=== PATIENT | male | born 1960 | race African-American/Black ===

== ENCOUNTER 2019-09-02 11:18 | Inpatient (IN) | payer SELFPAY ==
[~2019-09-02] VITALS: Ht 165.1 cm; Wt 70.6 kg
[2019-09-02 11:59] LABS: BASO # 0.1 x10^3/uL (0.0-0.2); BASO % 1 % (0-3); EOS % 0 % (0-3); HEMATOCRIT 42.1 % (39.0-53.0); HEMOGLOBIN 13.7 g/dL (13.0-17.5); LYMPH # 1.9 x10^3/uL (1.0-4.8); LYMPH % 16 % (24-48); MEAN CORPUSCULAR HEMOGLOBIN 31 pg (25-35); MEAN CORPUSCULAR HGB CONC 33 g/dL (31-37); MEAN CORPUSCULAR VOLUME 95 fL (79-100); MONO # 0.7 x10^3/uL (0.0-1.1); MONO % 6 % (0-9); NEUT # 9.3 x10^3uL (1.8-7.7); NEUT % 78 % (31-73); PLATELET COUNT 303 x10^3/uL (140-400); RED BLOOD COUNT 4.41 x10^6/uL (4.30-5.70); WHITE BLOOD COUNT 11.9 x10^3/uL (4.0-11.0)
--- NOTE | 2019-09-02 11:59 | RAD ---
EXAM: CHEST 1 VIEW History: Shortness of breath COMPARISON: None available. TECHNIQUE: Single portable radiograph of the chest Findings/ impression: The cardiac silhouette is unremarkable. Prominent appearing bilateral perihilar interstitial lung markings probably congestive changes or interstitial infiltrates. There are patchy airspace opacities identified in the bilateral lungs likely atelectasis or infiltrates, neoplasm is not completely excluded. Follow-up CT chest can be considered. Electronically signed by: Leon Swanson MD (09/02/2019 11:56 AM) [id number]
[2019-09-02 12:04] LABS: CALCIUM 8.8 mg/dL (8.5-10.1); CREATININE 1.3 mg/dL (0.7-1.3); GFR 68.8; POTASSIUM 4.3 mmol/L (3.5-5.1)
[2019-09-02 12:17] LABS: ALBUMIN 2.8 g/dL (3.4-5.0); ALBUMIN/GLOBULIN RATIO 0.7 (1.0-1.7); TOTAL BILIRUBIN 0.4 mg/dL (0.2-1.0); TOTAL PROTEIN 6.9 g/dL (6.4-8.2)
--- NOTE | 2019-09-02 12:20 | PHYS DOC ---
Past History Past Medical History: No Pertinent History Past Surgical History: Other Additional Past Surgical Histo: hernia surgery as a child Alcohol Use: None General Adult EDM: Chief Complaint: OTHER COMPLAINTS HPI: HPI: 59-year-old male presents with decreased exercise tolerance. He was referred here by his primary care physician. He was concerned the patient may have CHF. The patient tells me he does not have any significant medical history. He just does not feel like he can do his normal activities without becoming very tired. He does not really feel short of breath, but does admit to breathing harder with exertion. He denies muscle cramps. Denies fever chills. He has been eating and drinking normally. He takes no daily medications. Review of Systems: Review of Systems: Constitutional: fatigue. Denies fever or chills Eyes: Denies change in visual acuity HENT: Denies nasal congestion or sore throat Respiratory: shortness of breath without cough Cardiovascular: Denies chest pain or edema GI: Denies abdominal pain, nausea, vomiting, bloody stools or diarrhea : Denies dysuria Musculoskeletal: Denies back pain or joint pain Integument: Denies rash Neurologic: Denies headache, focal weakness or sensory changes Endocrine: Denies polyuria or polydipsia Lymphatic: Denies swollen glands Psychiatric: Denies depression or anxiety Heart Score: Risk Factors: Risk Factors: DM, Current or recent (<one month) smoker, HTN, HLP, family history of CAD, obesity. Risk Scores: Score 0 - 3: 2.5% MACE over next 6 weeks - Discharge Home Score 4 - 6: 20.3% MACE over next 6 weeks - Admit for Clinical Observation Score 7 - 10: 72.7% MACE over next 6 weeks - Early Invasive Strategies Allergies: Allergies: Allergies Coded Allergies Type Severity Reaction Last Updated Verified No Known Drug Allergies 09/02/19 No Physical Exam: PE: Constitutional: Well developed, well nourished, no acute distress, non-toxic appearance. [] HENT: Normocephalic, atraumatic, bilateral external ears normal, oropharynx moist, no oral exudates, nose normal. [] Eyes: PERRLA, EOMI, conjunctiva normal, no discharge. [] Neck: Normal range of motion, no tenderness, supple, no stridor. [] Cardiovascular:Heart rate regular rhythm, no murmur [] Lungs & Thorax: Bilateral breath sounds clear to auscultation [] Abdomen: Bowel sounds normal, soft, no tenderness, no masses, no pulsatile masses. [] Skin: Warm, dry, no erythema, no rash. [] Back: No tenderness, no CVA tenderness. [] Extremities: No tenderness, no cyanosis, no clubbing, ROM intact, no edema. [] Neurologic: Alert and oriented X 3, normal motor function, normal sensory function, no focal deficits noted. [] Psychologic: Affect normal, judgement normal, mood normal. [] Current Patient Data: Labs: Laboratory Tests Test 09/02/19 11:44 White Blood Count 11.9 x10^3/uL (4.0-11.0) H Red Blood Count 4.41 x10^6/uL (4.30-5.70) Hemoglobin 13.7 g/dL (13.0-17.5) Hematocrit 42.1 % (39.0-53.0) Mean Corpuscular Volume 95 fL (79-100) Mean Corpuscular Hemoglobin 31 pg (25-35) Mean Corpuscular Hemoglobin Concent 33 g/dL (31-37) Red Cell Distribution Width 14.0 % (11.5-14.5) Platelet Count 303 x10^3/uL (140-400) Neutrophils (%) (Auto) 78 % (31-73) H Lymphocytes (%) (Auto) 16 % (24-48) L Monocytes (%) (Auto) 6 % (0-9) Eosinophils (%) (Auto) 0 % (0-3) Basophils (%) (Auto) 1 % (0-3) Neutrophils # (Auto) 9.3 x10^3uL (1.8-7.7) H Lymphocytes # (Auto) 1.9 x10^3/uL (1.0-4.8) Monocytes # (Auto) 0.7 x10^3/uL (0.0-1.1) Eosinophils # (Auto) 0.0 x10^3/uL (0.0-0.7) Basophils # (Auto) 0.1 x10^3/uL (0.0-0.2) Sodium Level 134 mmol/L (136-145) L Potassium Level 4.3 mmol/L (3.5-5.1) Chloride Level 100 mmol/L (98-107) Carbon Dioxide Level 21 mmol/L (21-32) Anion Gap 13 (6-14) Blood Urea Nitrogen 16 mg/dL (8-26) Creatinine 1.3 mg/dL (0.7-1.3) Estimated GFR (Cockcroft-Gault) 68.8 BUN/Creatinine Ratio 12 (6-20) Glucose Level 166 mg/dL (70-99) H Calcium Level 8.8 mg/dL (8.5-10.1) Total Bilirubin Pending Aspartate Amino Transferase (AST) Pending Alanine Aminotransferase (ALT) Pending Alkaline Phosphatase Pending RL-Gdt-O-Type Natriuretic Peptide Pending Total Protein Pending Albumin Pending Albumin/Globulin Ratio Pending Vital Signs: Vital Signs Date Time Temp Pulse Resp B/P (MAP) Pulse Ox O2 Delivery O2 Flow Rate FiO2 09/02/19 11:18 98.1 97 27 158/74 (102) 100 Room Air EKG: EKG: Sinus rhythm, rate 99, leftward axis, no ST elevation or depression [] Radiology/Procedures: Radiology/Procedures: [] Impressions: EXAM: CHEST 1 VIEW History: Shortness of breath COMPARISON: None available. TECHNIQUE: Single portable radiograph of the chest Findings/ impression: The cardiac silhouette is unremarkable. Prominent appearing bilateral perihilar interstitial lung markings probably congestive changes or interstitial infiltrates. There are patchy airspace opacities identified in the bilateral lungs likely atelectasis or infiltrates, neoplasm is not completely excluded. Follow-up CT chest can be considered. Electronically signed by: Leon Chaudhry MD (09/02/2019 11:56 AM) [id number] DICTATED AND SIGNED BY: LEON CHAUDHRY MD DATE: 09/02/19 1156 CC: ALIZA SANDERSON DO; IGNACIO FLANAGAN MD ~ CT CHEST W/CONTRAST History: Shortness of breath. Possible mass. Technique: CT of the chest was performed with contrast. Coronal and sagittal reconstructions were performed. Exposure: One or more of the following individualized dose reduction techniques were utilized for this examination: 1. Automated exposure control 2. Adjustment of the mA and/or kV according to patient size 3. Use of iterative reconstruction technique. Comparison: Chest x-ray September 02, 2019 Findings: Chest: Small segmental and subsegmental pulmonary emboli most prominent within the right lower lobe. Bilateral central groundglass opacities involving bilateral upper and lower lobes. Small to moderate bilateral pleural effusions. Numerous small mediastinal lymph nodes. Mild bronchial wall thickening. Mild atheromatous plaque within the aorta. No aortic aneurysm or dissection. Coronary artery calcifications. Fluid within the midesophagus. Upper abdomen: Layering hyperdensity within the gallbladder, may represent tiny stones or sludge. Bones: No pathologic osseous lesions. Impression: 1. Small segmental and subsegmental pulmonary emboli most prominent right lower lobe. 2. Bilateral ground glass opacities, may represent pulmonary edema or atypical infection such as viral pneumonia. 3. Small to moderate bilateral pleural effusions. 4. Fluid within the midesophagus, may relate to reflux. 5. Cholelithiasis or gallbladder sludge. FOR INTERNAL CODING PURPOSES Critical result: Findings discussed with ALIZA SANDERSON at 09/02/2019 1:05 PM. RESULT CODE: (C) Electronically signed by: Avinash Diez DO (09/02/2019 1:08 PM) [id number] DICTATED AND SIGNED BY: AVINASH DIEZ DO DATE: 09/02/19 1308 CC: ALIZA SANDERSON DO; IGNACIO FLANAGAN MD ~ Course & Med Decision Making: Course & Med Decision Making Pertinent Labs and Imaging studies reviewed. (See chart for details) The patient's chest x-ray is significant for abnormal findings. See official read for more details. A CT of the chest was ordered. The patient has multiple abnormal labs including an elevated troponin. His EKG is negative for STEMI. See labs for more details. The patient has groundglass opacities and a couple of small pulmonary emboli. Given these results and the patient's description of symptoms, he is likely COVID-19. He has been placed in isolation. We will perform a COVID-19 test. I will give the patient 1 mg/kg of Lovenox for his pulmonary embolus. He will also be admitted to the ICU. I spoke with Dr. Flanagan and he has accepted the patient for admission. 48 minutes of critical care time was spent on this patient exclusive of other billable procedures. [] Dragon Disclaimer: Dragon Disclaimer: This electronic medical record was generated, in whole or in part, using a voice recognition dictation system. Departure Departure: Impression: Primary Impression: Pulmonary emboli Qualified Codes: I26.94 - Multiple subsegmental pulmonary emboli without acute cor pulmonale Additional Impressions: Suspected COVID-19 virus infection Elevated troponin Disposition: ADMITTED INPATIENT Admitting Physician: Ignacio Flanagan Condition: GUARDED Referrals: IGNACIO FLANAGAN MD (PCP) ALIZA SANDERSON DO September 02, 2019 12:20
--- NOTE | 2019-09-02 12:35 | EKG ---
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
[2019-09-02] MEDS ORDERED: IOHEXOL 300 MG/ML 75 ML VIAL. IV ONE (12:45)
[2019-09-02] MEDS ORDERED: CONTRAST GIVEN. MC PRN (12:45)
--- NOTE | 2019-09-02 13:11 | RAD ---
CT CHEST W/CONTRAST History: Shortness of breath. Possible mass. Technique: CT of the chest was performed with contrast. Coronal and sagittal reconstructions were performed. Exposure: One or more of the following individualized dose reduction techniques were utilized for this examination: 1. Automated exposure control 2. Adjustment of the mA and/or kV according to patient size 3. Use of iterative reconstruction technique. Comparison: Chest x-ray September 02, 2019 Findings: Chest: Small segmental and subsegmental pulmonary emboli most prominent within the right lower lobe. Bilateral central groundglass opacities involving bilateral upper and lower lobes. Small to moderate bilateral pleural effusions. Numerous small mediastinal lymph nodes. Mild bronchial wall thickening. Mild atheromatous plaque within the aorta. No aortic aneurysm or dissection. Coronary artery calcifications. Fluid within the midesophagus. Upper abdomen: Layering hyperdensity within the gallbladder, may represent tiny stones or sludge. Bones: No pathologic osseous lesions. Impression: 1. Small segmental and subsegmental pulmonary emboli most prominent right lower lobe. 2. Bilateral ground glass opacities, may represent pulmonary edema or atypical infection such as viral pneumonia. 3. Small to moderate bilateral pleural effusions. 4. Fluid within the midesophagus, may relate to reflux. 5. Cholelithiasis or gallbladder sludge. FOR INTERNAL CODING PURPOSES Critical result: Findings discussed with ALIZA SANDERSON at 09/02/2019 1:05 PM. RESULT CODE: (C) Electronically signed by: Avinash Diez DO (09/02/2019 1:08 PM) [id number]
[2019-09-02] MEDS ORDERED: ENOXAPARIN ** NOTE DOSE ** SYRINGE SQ ONE (13:15)
[2019-09-02 15:32] VITALS: BP 138/103
[2019-09-02] MEDS ORDERED: ONDANSETRON PF 4 MG/2 ML VIAL. IVP PRN (16:15)
[2019-09-02] MEDS ORDERED: hydrALAZINE 20 MG/ML VIAL. IV PRN (16:15)
[2019-09-02] MEDS ORDERED: METOCLOPRAMIDE HCL 10 MG/2 ML VIAL. IVP PRN (16:15)
[2019-09-02] MEDS ORDERED: ACETAMINOPHEN 325 MG TABLET PO PRN (16:15)
[2019-09-02] MEDS ORDERED: ASPIRIN 325 MG TABLET PO ONE (16:15)
--- NOTE | 2019-09-02 16:30 | NUR ---
Pt admitted per ED. PT is able to verbalize understanding of admission to unit and admission orientation. PT per ED was at [facility] yesterday with presumed COVID and let AMA. PT was having SOB today and went to [facility] sent him to ED. Went over extensively with patient why he is in the hospital and why he needs to stay in the hospital until discharged. Cardiology has been consulted and will see him in AM. Jaxon ANDERSON
[2019-09-02 18:35] VITALS: BP 115/86
[2019-09-02] MEDS ORDERED: ACETAMINOPHEN 500 MG TABLET PO PRN (19:00)
[2019-09-02] MEDS ORDERED: ZOLPIDEM 5 MG TABLET. PO PRN (19:00)
[2019-09-02] MEDS ORDERED: DEXTROSE 50% 25 GM / 50ML DISP.SYRIN. IV PRN (19:45)
[2019-09-02] MEDS: APIXABAN 5 MG TABLET. PO SCH (20:10)
[2019-09-02] MEDS ORDERED: ENOXAPARIN ** NOTE DOSE ** SYRINGE SQ SCH (21:00)
[2019-09-02] MEDS ORDERED: AZITHROMYCIN 250 MG TABLET. PO ONE (21:00)
[2019-09-02 22:27] LABS: BILIRUBIN,URINE NEG (NEG); CLARITY,URINE CLEAR; COLOR,URINE YELLOW; GLUCOSE,URINE NEG (NEG); NITRITE,URINE NEG (NEG)
[2019-09-02 22:29] LABS: BACTERIA,URINE FEW /HPF (0-FEW); WBC,URINE 0 /HPF (0-4)
[2019-09-02 22:58] VITALS: BP 115/78
[2019-09-03] VITALS (7 sets, daily range): BP systolic 114–132; BP diastolic 80–93
--- NOTE | 2019-09-03 05:31 | NUR ---
Pt placed on O2 at 2L via NC during the night due to desating 89-91% on RA, while asleep. Pt sats upper 90's on 2L and reports decreased SOA.
--- NOTE | 2019-09-03 06:56 | NUR ---
Attempted x2 to draw AM labs, unsuccessful. Sobeida, special warfare operator now at bedside to attempt.
[2019-09-03 07:11] LABS: BASO # 0.1 x10^3/uL (0.0-0.2); BASO % 1 % (0-3); EOS % 0 % (0-3); HEMOGLOBIN 13.6 g/dL (13.0-17.5); LYMPH # 1.8 x10^3/uL (1.0-4.8); LYMPH % 16 % (24-48); MEAN CORPUSCULAR HEMOGLOBIN 31 pg (25-35); MEAN CORPUSCULAR HGB CONC 33 g/dL (31-37); MEAN CORPUSCULAR VOLUME 95 fL (79-100); MONO # 0.6 x10^3/uL (0.0-1.1); MONO % 5 % (0-9); NEUT # 8.9 x10^3uL (1.8-7.7); NEUT % 78 % (31-73); PLATELET COUNT 332 x10^3/uL (140-400); RED BLOOD COUNT 4.33 x10^6/uL (4.30-5.70); RED CELL DISTRIBUTION WIDTH 13.9 % (11.5-14.5); WHITE BLOOD COUNT 11.4 x10^3/uL (4.0-11.0)
[2019-09-03 07:30] LABS: ALBUMIN 2.7 g/dL (3.4-5.0); ALBUMIN/GLOBULIN RATIO 0.6 (1.0-1.7); CALCIUM 8.5 mg/dL (8.5-10.1); CREATININE 1.3 mg/dL (0.7-1.3); GFR 68.8; POTASSIUM 4.9 mmol/L (3.5-5.1); TOTAL BILIRUBIN 0.5 mg/dL (0.2-1.0)
[2019-09-03] MEDS: INSULIN LISPRO 300 UNITS/3 ML VIAL. SQ SCH ×3 (08:00→16:57)
[2019-09-03] MEDS: APIXABAN 5 MG TABLET. PO SCH ×2 (09:04→20:24)
[2019-09-03] MEDS: PANTOPRAZOLE 40 MG TABLET. PO SCH (09:04)
[2019-09-03] MEDS: FUROSEMIDE 20 MG/2 ML VIAL IVP SCH ×2 (09:05→14:47)
[2019-09-03] MEDS: AZITHROMYCIN 250 MG TABLET. PO SCH (09:05)
[2019-09-03] MEDS: ASPIRIN CHEWABLE 81 MG TABLET. PO SCH (09:05)
--- NOTE | 2019-09-03 09:11 | PDOC2 ---
RJ TAVARES AFSHIN 09/03/19 0911: CARDIAC CONSULT DATE OF CONSULT Date Of Consult DATE: 09/03/19 TIME: 09:03 REASON FOR CONSULT Reason for Consult CHF Elevated troponin REFERRING PHYSICIAN Referring Physician Dr. Mulligan SOURCE Source: Chart review, Patient HPI History of Present Illness This is a 59 yo male who presented secondary to fatigue and MATTHEWS. Patient reports that he has been getting very worn out and short of breath with minimal exertion over the last couple of months. Has had mild bilateral LE edema. Mild orthopnea. No dizziness, diaphoresis, chest pain, palpitations, or nausea/vomiting. No sick contacts. No h/o cardiac disease, although he does not go to the doctor. PAST MEDICAL HISTORY Cardiovascular: No pertinent hx Pulmonary: No pertinent hx GI: No pertinent hx Musculoskeletal: No pertinent hx Rheumatologic: No pertinent hx Renal/: No pertinent hx PAST SURGICAL HISTORY Past Surgical History: Hernia Repair FAMILY HISTORY Family History: Hypertension SOCIAL HISTORY Drugs: Marijuana, Crystal meth (last used 3 months ago) Lives: with Family CURRENT MEDICATIONS Current Medications Current Medications Iohexol (Omnipaque 300 Mg/ml) 75 ml 1X ONCE IV Last administered on 09/02/19at 12:45; Start 09/02/19 at 12:45; Stop 09/02/19 at 12:46; Status DC Info (Do NOT chart on this entry -- for MONITORING) 1 each PRN DAILY PRN MC SEE COMMENTS; Start 09/02/19 at 12:45; Stop 09/04/19 at 12:44 Enoxaparin Sodium (Lovenox 80mg Syringe) 80 mg 1X ONCE SQ Last administered on 09/02/19at 13:15; Start 09/02/19 at 13:15; Stop 09/02/19 at 18:55; Status DC Metoclopramide HCl (Reglan Vial) 10 mg PRN Q6HRS PRN IVP NAUSEA/VOMITING; Start 09/02/19 at 16:15 Ondansetron HCl (Zofran) 4 mg PRN Q8HRS PRN IVP NAUSEA/VOMITING; Start 09/02/19 at 16:15 Acetaminophen (Tylenol) 650 mg PRN Q6HRS PRN PO Headaches, Temp > 101.5F; Start 09/02/19 at 16:15; Stop 09/02/19 at 19:58; Status DC Enoxaparin Sodium (Lovenox 80mg Syringe) 80 mg Q12HR SQ ; Start 09/02/19 at 21:00; Stop 09/02/19 at 18:55; Status DC Aspirin (Josh Aspirin) 325 mg 1X ONCE PO Last administered on 09/02/19at 16:53; Start 09/02/19 at 16:15; Stop 09/02/19 at 16:50; Status DC Aspirin (Aspirin Chewable) 81 mg DAILYWBKFT PO ; Start 09/03/19 at 08:00 Hydralazine HCl (Apresoline) 10 mg PRN Q4HRS PRN IV ELEVATED BP, SEE COMMENTS; Start 09/02/19 at 16:15 Pantoprazole Sodium (Protonix) 40 mg DAILYAC PO ; Start 09/03/19 at 08:00 Azithromycin (Zithromax) 500 mg 1X ONCE PO Last administered on 09/02/19at 20:09; Start 09/02/19 at 21:00; Stop 09/02/19 at 21:01; Status DC Apixaban (Eliquis) 10 mg BID PO Last administered on 09/02/19at 20:10; Start 09/02/19 at 21:00; Stop 09/09/19 at 12:00 Azithromycin (Zithromax) 250 mg DAILY PO ; Start 09/03/19 at 09:00 Furosemide (Lasix) 20 mg BID92 IVP ; Start 09/03/19 at 09:00 Zolpidem Tartrate (Ambien) 5 mg PRN QHS PRN PO INSOMNIA Last administered on 09/02/19at 20:09; Start 09/02/19 at 19:00 Acetaminophen (Tylenol) 500 mg PRN Q8HRS PRN PO pain; Start 09/02/19 at 19:00 Insulin Human Lispro (HumaLOG) 0-9 UNITS TIDWMEALS SQ ; Start 09/03/19 at 08:00 Dextrose (Dextrose 50%-Water Syringe) 12.5 gm PRN Q15MIN PRN IV SEE COMMENTS; Start 09/02/19 at 19:45 Apixaban (Eliquis) 5 mg BID PO ; Start 09/09/19 at 21:00 ALLERGIES Allergies: Coded Allergies: No Known Drug Allergies (Unverified , 09/02/19) ROS Review of Systems 14 point ROS conducted with pertinent positives noted above in HPI. PHYSICAL EXAM General: Alert, Oriented X3, Cooperative, No acute distress HEENT: Atraumatic Lungs: Other (diminished ) Heart: Regular rate, Normal S1, Normal S2 Abdomen: Soft, No tenderness Extremities: Other (trace bilateral LE edema ) Skin: No rashes, No breakdown Neuro: Normal speech, Sensation intact Psych/Mental Status: Mental status NL, Mood NL MUSCULOSKELETAL: No joint tenderness VITALS Vital Signs Vital Signs Date Time Temp Pulse Resp B/P (MAP) Pulse Ox O2 Delivery O2 Flow Rate FiO2 09/03/19 08:04 97.7 99 16 121/90 (100) 98 Nasal Cannula 2.0 LABS LABS Laboratory Tests Test 09/02/19 11:44 09/02/19 16:04 09/02/19 17:00 09/02/19 19:50 White Blood Count 11.9 x10^3/uL (4.0-11.0) Red Blood Count 4.41 x10^6/uL (4.30-5.70) Hemoglobin 13.7 g/dL (13.0-17.5) Hematocrit 42.1 % (39.0-53.0) Mean Corpuscular Volume 95 fL (79-100) Mean Corpuscular Hemoglobin 31 pg (25-35) Mean Corpuscular Hemoglobin Concent 33 g/dL (31-37) Red Cell Distribution Width 14.0 % (11.5-14.5) Platelet Count 303 x10^3/uL (140-400) Neutrophils (%) (Auto) 78 % (31-73) Lymphocytes (%) (Auto) 16 % (24-48) Monocytes (%) (Auto) 6 % (0-9) Eosinophils (%) (Auto) 0 % (0-3) Basophils (%) (Auto) 1 % (0-3) Neutrophils # (Auto) 9.3 x10^3uL (1.8-7.7) Lymphocytes # (Auto) 1.9 x10^3/uL (1.0-4.8) Monocytes # (Auto) 0.7 x10^3/uL (0.0-1.1) Eosinophils # (Auto) 0.0 x10^3/uL (0.0-0.7) Basophils # (Auto) 0.1 x10^3/uL (0.0-0.2) Sodium Level 134 mmol/L (136-145) Potassium Level 4.3 mmol/L (3.5-5.1) Chloride Level 100 mmol/L (98-107) Carbon Dioxide Level 21 mmol/L (21-32) Anion Gap 13 (6-14) Blood Urea Nitrogen 16 mg/dL (8-26) Creatinine 1.3 mg/dL (0.7-1.3) Estimated GFR (Cockcroft-Gault) 68.8 BUN/Creatinine Ratio 12 (6-20) Glucose Level 166 mg/dL (70-99) Calcium Level 8.8 mg/dL (8.5-10.1) Total Bilirubin 0.4 mg/dL (0.2-1.0) Aspartate Amino Transf (AST/SGOT) 62 U/L (15-37) Alanine Aminotransferase (ALT/SGPT) 158 U/L (16-63) Alkaline Phosphatase 149 U/L (46-116) Troponin I Quantitative 0.563 ng/mL (0-0.055) 0.558 ng/mL (0-0.055) PQ-Say-Z-Type Natriuretic Peptide 8594 pg/mL (0-124) Total Protein 6.9 g/dL (6.4-8.2) Albumin 2.8 g/dL (3.4-5.0) Albumin/Globulin Ratio 0.7 (1.0-1.7) Magnesium Level 2.3 mg/dL (1.8-2.4) Glucose (Fingerstick) 197 mg/dL (70-99) Test 09/02/19 21:52 09/02/19 23:06 09/03/19 07:02 Urine Collection Type Unknown Urine Color Yellow Urine Clarity Clear Urine pH 5.0 Urine Specific [place] 1.015 Urine Protein 30 mg/dl (NEG-TRACE) Urine Glucose (UA) Neg mg/dL (NEG) Urine Ketones (Stick) Neg mg/dL (NEG) Urine Blood Neg (NEG) Urine Nitrite Neg (NEG) Urine Bilirubin Neg (NEG) Urine Urobilinogen Dipstick 1.0 mg/dL (0.2 mg/dL) Urine Leukocyte Esterase Neg (NEG) Urine RBC 1-2 /HPF (0-2) Urine WBC 0 /HPF (0-4) Urine Squamous Epithelial Cells None /LPF Urine Bacteria Few /HPF (0-FEW) Troponin I Quantitative 0.312 ng/mL (0-0.055) White Blood Count 11.4 x10^3/uL (4.0-11.0) Red Blood Count 4.33 x10^6/uL (4.30-5.70) Hemoglobin 13.6 g/dL (13.0-17.5) Hematocrit 41.0 % (39.0-53.0) Mean Corpuscular Volume 95 fL (79-100) Mean Corpuscular Hemoglobin 31 pg (25-35) Mean Corpuscular Hemoglobin Concent 33 g/dL (31-37) Red Cell Distribution Width 13.9 % (11.5-14.5) Platelet Count 332 x10^3/uL (140-400) Neutrophils (%) (Auto) 78 % (31-73) Lymphocytes (%) (Auto) 16 % (24-48) Monocytes (%) (Auto) 5 % (0-9) Eosinophils (%) (Auto) 0 % (0-3) Basophils (%) (Auto) 1 % (0-3) Neutrophils # (Auto) 8.9 x10^3uL (1.8-7.7) Lymphocytes # (Auto) 1.8 x10^3/uL (1.0-4.8) Monocytes # (Auto) 0.6 x10^3/uL (0.0-1.1) Eosinophils # (Auto) 0.0 x10^3/uL (0.0-0.7) Basophils # (Auto) 0.1 x10^3/uL (0.0-0.2) Sodium Level 135 mmol/L (136-145) Potassium Level 4.9 mmol/L (3.5-5.1) Chloride Level 101 mmol/L (98-107) Carbon Dioxide Level 22 mmol/L (21-32) Anion Gap 12 (6-14) Blood Urea Nitrogen 18 mg/dL (8-26) Creatinine 1.3 mg/dL (0.7-1.3) Estimated GFR (Cockcroft-Gault) 68.8 BUN/Creatinine Ratio 14 (6-20) Glucose Level 136 mg/dL (70-99) Calcium Level 8.5 mg/dL (8.5-10.1) Total Bilirubin 0.5 mg/dL (0.2-1.0) Aspartate Amino Transf (AST/SGOT) 49 U/L (15-37) Alanine Aminotransferase (ALT/SGPT) 138 U/L (16-63) Alkaline Phosphatase 148 U/L (46-116) Total Protein 7.0 g/dL (6.4-8.2) Albumin 2.7 g/dL (3.4-5.0) Albumin/Globulin Ratio 0.6 (1.0-1.7) ASSESSMENT/PLAN Assessment/Plan 1. Dyspnea upon exertion, multifactorial. COVID pending 2. Acute congestive heart failure; better compensated with diuresis 3. Mild troponin elevation; peak 0.5. Most probably type II, demand ischemia with multiple culprits noted. CP free 4. Elevated LFTs 5. Bilateral PE, small segmental and subsegmental. 6. Cholelithiasis 7. Polysubstance abuse. Marijuana use, also methamphetamine use. Last used 3 months ago 8. Tobaccoism; quit 3 months ago Recommendations Lipids Diuresis with monitoring of labs Anticoagulation therapy UDS Echo to assess LV systolic function Further pending above. BEV SALINAS MD 09/03/19 1551: CARDIAC CONSULT ASSESSMENT/PLAN Assessment/Plan Pt. seen and examined. Agree with above BILLET HEATER Note. Await echo. Med mgmt for now. Thanks. RJ TAVARES APRN September 03, 2019 09:11 BEV SALINAS MD September 03, 2019 15:51
--- NOTE | 2019-09-03 09:27 | NUR ---
IP: Test pending for COVID-19, requires contact and airborne precautions.
--- NOTE | 2019-09-03 15:36 | NUR ---
Notified by [facility], COVID 19 results not detected. Per Infection Control patient will need to have COVID test results back from this facility in order to be transferred off unit. Patient doing well, continues to be fatigue but is resting. Patient denies pain or shortness of breath, occasional dry cough noted. Vitals remain stable and on room air. Per cardiology, plan is to continue IV Lasix and obtain echo once covid test is resulted.
--- NOTE | 2019-09-03 17:48 | HP ---
ADMIT DATE: 09/02/2019 HISTORY OF PRESENT ILLNESS: A 59-year-old male with multiple medical problems who has been ill, was seen 2 days ago, came in with increased shortness of breath, swelling in his legs, was seen initially at the [facility], left AMA there, apparently came into the [facility] ER late last night, was found to have severe pulmonary emboli as well as heart failure. The patient was admitted for further evaluation and treatment. The patient has numerous medical problems as well. The patient was admitted, apparently has some diabetes, elevated liver enzymes, elevated troponin levels as well. He was admitted for variety of medical issues. The patient is totally disabled, unable to work and admitted for multiple medical issues because he is on a rule out COVID-19 test. The patient's echo and DVT test will be held off until those tests are brought back. 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 In any case, he was admitted for heart failure, pulmonary emboli and possible pneumonia. PAST MEDICAL HISTORY: Neurological disorder, tobacco abuse, smoking exposure, hernia repair, respiratory disorders. FAMILY HISTORY: Hypertension, diabetes in the mother. MEDICATIONS: He really has not been taking any medications as an outpatient due to the medical establishment. ALLERGIES: He has no known drug allergies. SOCIAL HISTORY: The patient has a smoking history, has drinking history. Denies hard drug use. REVIEW OF SYSTEMS: General; weight loss, marked dyspnea with minimal exertion, marked swelling to his extremities. Neurologically, just generalized weakness, dyspnea, overall decompensation. Denies chest pain, does have shortness of breath, orthopnea and dyspnea, headaches. PHYSICAL EXAMINATION: GENERAL: This is a very pleasant, cooperative Afro-British gentleman. VITAL SIGNS: Blood pressure 158/74, respiratory rate 27, pulse of approximately 100, temperature 98.1 up to roughly ___. HEENT: The patient's head was atraumatic, normocephalic. Eyes: PERRLA without jaundice. Looks very tired. Eyes are PERRLA without jaundice. Mouth and throat were normal. NECK: Supple. LUNGS: Diminished crackles, rales in the bases. CARDIOVASCULAR: Regular sinus rhythm, S1, S2. ABDOMEN: Soft, nontender. EXTREMITIES: No clubbing or cyanosis; +1 to 2 pitting edema. Positive Homans sign. NEUROLOGIC: The patient was alert and oriented x 3. LABORATORY DATA: Demonstrate sodium and potassium normal. Elevated liver enzymes AST 49, ALT 138, alkaline phosphatase 148. The patient's troponins, elevated at 0.6, 0.56 0.55. BNP of 8500. Albumin 2.8, which is low. Magnesium was normal. Glucose 166-197, BUN and creatinine were normal. Hemoglobin was good at 13, white count approximately 1.9. Chest x-rays were basically showing markings consistent with congestive heart failure and interstitial patchy infiltrates and opacities. CTA demonstrated pulmonary emboli, ground glass appearance, pleural effusions, probable cholelithiasis and/or cholelithiasis, sludge. So, we have young man with congestive heart failure, ground glass appearances, cholelithiasis, pulmonary emboli, probable infectious etiology in the lungs, dyspnea, heart failure, elevated troponins, elevated liver enzymes, hyperglycemia, dyspnea, polysubstance abuse, possible marijuana, methamphetamine, nicotine abuse. PLAN: The patient will be placed on diuresis as well as anticoagulation. Further workup with the echocardiography, Cardiology consultation and make further evaluation on him per Cardiology. Other workup as indicated. IGNACIO FLANAGAN MD DR: ANTONIA/linnette JOB#: [id number] / [id number]
[2019-09-04 01:08] LABS: HEMOGLOBIN A1C 6.2 % (4.8-5.6)
[2019-09-04 04:00] VITALS: BP 121/90
--- NOTE | 2019-09-04 06:13 | NUR ---
Pt resting in bed. No complaints throughout the night. Pt continues on RA. VSS. Pt educated on need for urine specimen and he said he will collect it next time around, cup at bedside table. Pt remains ST/SR on monitor. Did have Tmax of 99.4 orally but normalized by morning. Still awaiting COVID results.
--- NOTE | 2019-09-04 08:13 | PDOC ---
CARDIO Progress Notes Date & Time Date of Service DATE: 09/04/19 TIME: 08:11 Time of Evaluation 08:11 Subjective Notes No chest pain, palpitations, dizziness, diaphoresis. SOA much better today Vitals Vitals Vital Signs Date Time Temp Pulse Resp B/P (MAP) Pulse Ox O2 Delivery O2 Flow Rate FiO2 09/04/19 04:00 97.6 100 21 121/90 (100) 94 Room Air 09/03/19 08:04 2.0 Weight Weight [ ] Input and Output I.O. Intake and Output 09/04/19 07:00 Intake Total 1645 ml Output Total 2250 ml Balance -605 ml Intake Oral 1645 ml Output Urine Total 2250 ml # Voids 1 Laboratory Labs Laboratory Tests Test 09/02/19 11:44 09/02/19 16:04 09/02/19 17:00 09/02/19 19:50 White Blood Count 11.9 x10^3/uL (4.0-11.0) Red Blood Count 4.41 x10^6/uL (4.30-5.70) Hemoglobin 13.7 g/dL (13.0-17.5) Hematocrit 42.1 % (39.0-53.0) Mean Corpuscular Volume 95 fL (79-100) Mean Corpuscular Hemoglobin 31 pg (25-35) Mean Corpuscular Hemoglobin Concent 33 g/dL (31-37) Red Cell Distribution Width 14.0 % (11.5-14.5) Platelet Count 303 x10^3/uL (140-400) Neutrophils (%) (Auto) 78 % (31-73) Lymphocytes (%) (Auto) 16 % (24-48) Monocytes (%) (Auto) 6 % (0-9) Eosinophils (%) (Auto) 0 % (0-3) Basophils (%) (Auto) 1 % (0-3) Neutrophils # (Auto) 9.3 x10^3uL (1.8-7.7) Lymphocytes # (Auto) 1.9 x10^3/uL (1.0-4.8) Monocytes # (Auto) 0.7 x10^3/uL (0.0-1.1) Eosinophils # (Auto) 0.0 x10^3/uL (0.0-0.7) Basophils # (Auto) 0.1 x10^3/uL (0.0-0.2) Sodium Level 134 mmol/L (136-145) Potassium Level 4.3 mmol/L (3.5-5.1) Chloride Level 100 mmol/L (98-107) Carbon Dioxide Level 21 mmol/L (21-32) Anion Gap 13 (6-14) Blood Urea Nitrogen 16 mg/dL (8-26) Creatinine 1.3 mg/dL (0.7-1.3) Estimated GFR (Cockcroft-Gault) 68.8 BUN/Creatinine Ratio 12 (6-20) Glucose Level 166 mg/dL (70-99) Calcium Level 8.8 mg/dL (8.5-10.1) Total Bilirubin 0.4 mg/dL (0.2-1.0) Aspartate Amino Transf (AST/SGOT) 62 U/L (15-37) Alanine Aminotransferase (ALT/SGPT) 158 U/L (16-63) Alkaline Phosphatase 149 U/L (46-116) Troponin I Quantitative 0.563 ng/mL (0-0.055) 0.558 ng/mL (0-0.055) GS-Cxj-H-Type Natriuretic Peptide 8594 pg/mL (0-124) Total Protein 6.9 g/dL (6.4-8.2) Albumin 2.8 g/dL (3.4-5.0) Albumin/Globulin Ratio 0.7 (1.0-1.7) Hemoglobin A1c 6.2 % (4.8-5.6) Magnesium Level 2.3 mg/dL (1.8-2.4) Coronavirus (COVID-19)(PCR) See separate report Glucose (Fingerstick) 197 mg/dL (70-99) Test 09/02/19 21:52 09/02/19 23:06 09/03/19 07:02 09/03/19 11:27 Urine Collection Type Unknown Urine Color Yellow Urine Clarity Clear Urine pH 5.0 Urine Specific [place] 1.015 Urine Protein 30 mg/dl (NEG-TRACE) Urine Glucose (UA) Neg mg/dL (NEG) Urine Ketones (Stick) Neg mg/dL (NEG) Urine Blood Neg (NEG) Urine Nitrite Neg (NEG) Urine Bilirubin Neg (NEG) Urine Urobilinogen Dipstick 1.0 mg/dL (0.2 mg/dL) Urine Leukocyte Esterase Neg (NEG) Urine RBC 1-2 /HPF (0-2) Urine WBC 0 /HPF (0-4) Urine Squamous Epithelial Cells None /LPF Urine Bacteria Few /HPF (0-FEW) Troponin I Quantitative 0.312 ng/mL (0-0.055) White Blood Count 11.4 x10^3/uL (4.0-11.0) Red Blood Count 4.33 x10^6/uL (4.30-5.70) Hemoglobin 13.6 g/dL (13.0-17.5) Hematocrit 41.0 % (39.0-53.0) Mean Corpuscular Volume 95 fL (79-100) Mean Corpuscular Hemoglobin 31 pg (25-35) Mean Corpuscular Hemoglobin Concent 33 g/dL (31-37) Red Cell Distribution Width 13.9 % (11.5-14.5) Platelet Count 332 x10^3/uL (140-400) Neutrophils (%) (Auto) 78 % (31-73) Lymphocytes (%) (Auto) 16 % (24-48) Monocytes (%) (Auto) 5 % (0-9) Eosinophils (%) (Auto) 0 % (0-3) Basophils (%) (Auto) 1 % (0-3) Neutrophils # (Auto) 8.9 x10^3uL (1.8-7.7) Lymphocytes # (Auto) 1.8 x10^3/uL (1.0-4.8) Monocytes # (Auto) 0.6 x10^3/uL (0.0-1.1) Eosinophils # (Auto) 0.0 x10^3/uL (0.0-0.7) Basophils # (Auto) 0.1 x10^3/uL (0.0-0.2) Sodium Level 135 mmol/L (136-145) Potassium Level 4.9 mmol/L (3.5-5.1) Chloride Level 101 mmol/L (98-107) Carbon Dioxide Level 22 mmol/L (21-32) Anion Gap 12 (6-14) Blood Urea Nitrogen 18 mg/dL (8-26) Creatinine 1.3 mg/dL (0.7-1.3) Estimated GFR (Cockcroft-Gault) 68.8 BUN/Creatinine Ratio 14 (6-20) Glucose Level 136 mg/dL (70-99) Calcium Level 8.5 mg/dL (8.5-10.1) Total Bilirubin 0.5 mg/dL (0.2-1.0) Aspartate Amino Transf (AST/SGOT) 49 U/L (15-37) Alanine Aminotransferase (ALT/SGPT) 138 U/L (16-63) Alkaline Phosphatase 148 U/L (46-116) Total Protein 7.0 g/dL (6.4-8.2) Albumin 2.7 g/dL (3.4-5.0) Albumin/Globulin Ratio 0.6 (1.0-1.7) Triglycerides Level 97 mg/dL (0-150) Cholesterol Level 159 mg/dL (0-200) LDL Cholesterol, Calculated 112 mg/dL (0-100) VLDL Cholesterol, Calculated 19 mg/dL (0-40) Non-HDL Cholesterol Calculated 131 mg/dL (0-129) HDL Cholesterol 28 mg/dL (40-60) Cholesterol/HDL Ratio 5.0 Thyroid Stimulating Hormone (TSH) 0.731 uIU/mL (0.358-3.740) Glucose (Fingerstick) 129 mg/dL (70-99) Test 09/03/19 16:44 Glucose (Fingerstick) 149 mg/dL (70-99) Microbiology Micro Microbiology 09/02/19 Blood Culture - Preliminary, Resulted NO GROWTH AFTER 1 DAY... Physical Exams HEENT: Neck Supple W Full Motion Chest: Symmetric Lungs: Clear to Auscultation Heart: RRR Abdomen: Soft N/T Extremities: No Edema Neurology: alert, oriented, follow commands Assessment Assessment 1. Dyspnea upon exertion, multifactorial. COVID pending 2. Acute congestive systolic heart failure; better compensated with diuresis. Preliminary echo with depressed LV function and LV thrombus 3. Mild troponin elevation; peak 0.5. Most probably type II, demand ischemia with multiple culprits noted. CP free 4. Elevated LFTs 5. Bilateral PE, small segmental and subsegmental. 6. Cholelithiasis 7. Polysubstance abuse. Marijuana use, also methamphetamine use. Last used 3 months ago 8. Tobaccoism; quit 3 months ago Recommendations Diuresis with monitoring of labs; covert to oral in am Discussed 2000cc FR and 2Gm Na dietary restriction. Long-term anticoagulation therapy with Eliquis Add statin client services analyst consult as patient guillen not have insurance Need further ischemic evaluation on an outpatient basis Reinforced abstinence from recreation drugs and tobacco use RJ TAVARES APRN September 04, 2019 08:13
[2019-09-04] MEDS: APIXABAN 5 MG TABLET. PO SCH ×2 (08:14→20:00)
[2019-09-04] MEDS: AZITHROMYCIN 250 MG TABLET. PO SCH (08:14)
[2019-09-04] MEDS: FUROSEMIDE 20 MG/2 ML VIAL IVP SCH ×2 (08:14→14:26)
[2019-09-04] MEDS: ASPIRIN CHEWABLE 81 MG TABLET. PO SCH (08:14)
[2019-09-04] MEDS: PANTOPRAZOLE 40 MG TABLET. PO SCH (08:14)
[2019-09-04 09:15] LABS: BARBITURATES NEG (NEG); BENZODIAZEPINES NEG (NEG); CANNABINOIDS POS (NEG); COCAINE NEG (NEG); METHADONE NEG (NEG); OPIATES NEG (NEG); PHENCYCLIDINE NEG (NEG)
[2019-09-04 09:18] LABS: AMPHETAMINE/METHAMPHETAMINE NEG (NEG)
[2019-09-04 09:59] LABS: CALCIUM 8.5 mg/dL (8.5-10.1); CREATININE 1.4 mg/dL (0.7-1.3); GFR 63.2
--- NOTE | 2019-09-04 11:31 | PN ---
DATE: 09/04/2019 SUBJECTIVE: A 59-year-old gentleman in with multiple medical problems including congestive heart failure, pneumonia, doing much better. He is diuresed, feeling better overall. His pneumonia is under better control. PHYSICAL EXAMINATION: GENERAL: The patient diuresed and feeling stronger. VITAL SIGNS: Blood pressure 120/90, respiratory rate 20, pulse about 100, afebrile, oxygen saturation 94% on room air, COVID-19 negative. LUNGS: Diminished, but clear. CARDIOVASCULAR: Stable. He will be moved out of the COVID-19 unit to the floor for continued PT, OT. Regular sinus rhythm. LUNGS: Clear. ABDOMEN: Soft, nontender. EXTREMITIES: No clubbing, cyanosis, nor edema. NEUROLOGIC: Intact. Continue on oral antibiotics. Continue diuresis just with Lasix 20 mg a day and Zithromax. IMPRESSION: Congestive heart failure; elevated troponins; pneumonia of unspecified etiology; pulmonary emboli, on Eliquis; bilateral cholelithiasis. He stopped smoking 3 months ago, ____ troponins. He is totally disabled, multifactorial. A1c 6.2. Hyperglycemia, elevated liver enzymes. Echocardiogram pending. Abdominal ultrasound pending, moderate protein malnutrition. PLAN: Continue rehab and we will continue to monitor the young man. IGNACIO FLANAGAN MD DR: ANTONIA/linnette JOB#: [id number] / [id number]
[2019-09-04 11:33] VITALS: BP 99/60
[2019-09-04 14:37] VITALS: BP 113/68
--- NOTE | 2019-09-04 15:39 | NUR ---
Received lab results that pt is negative for Covid 19. Pt has rested comfortably today. Notified that we will be transferring him to [address] [place] [address] due to negative Covid, he understands. ECHO completed at bedside at 1230.
--- NOTE | 2019-09-04 16:00 | CARD ---
MR#: [id number] Date of Study: 09/04/2019 Ordering Physician: IGNACIO FLANAGAN, Referring Physician: IGNACIO FLANAGAN, Tech: Sarah Taylor ADIN APPROVED REPORT EXAM: Two-dimensional and M-mode echocardiogram with Doppler and color Doppler. Other Information Quality : Excellent INDICATION Congestive Heart Failure 2D DIMENSIONS RVDd3.0 (2.9-3.5cm)Left Atrium(2D)4.2 (1.6-4.0cm) IVSd0.8 (0.7-1.1cm)Aortic Root(2D)2.4 (2.0-3.7cm) LVDd5.2 (3.9-5.9cm)LVOT Diameter2.1 (1.8-2.4cm) PWd1.1 (0.7-1.1cm)LVDs4.4 (2.5-4.0cm) FS (%) 7.5 % Aortic Valve HANNAH (VTI)3.50cm2 Tricuspid Valve TR P. [id number] TR Peak Gr.[id number] LEFT VENTRICLE The Left Ventricle is mildly dilated. There is normal left ventricular wall thickness. Left ventricle systolic function is severely impaired. The Ejection Fraction is estimated at 15%. There is severe g lobal hypokinesis of the left ventricle. There is akinesis in the apex wall. Transmitral Doppler flow pattern is a restrictive diastolic dysfunction. There are two areas of apical thrombus noted in the left ventricle. RIGHT VENTRICLE The right ventricle is normal size. Systolic function is mildly reduced. ATRIA The left atrium is mildly dilated. The right atrium is mildly dilated. The interatrial septum is inta ct with no evidence for an atrial septal defect or patent foramen ovale as noted on 2-D or Doppler im aging. AORTIC VALVE The aortic valve is normal in structure and function. Doppler and Color Flow revealed trace aortic re gurgitation. There is no significant aortic valvular stenosis. MITRAL VALVE The mitral valve is normal in structure and function. There is no evidence of mitral valve prolapse. There is no mitral valve stenosis. Doppler and Color-flow revealed moderate mitral regurgitation. TRICUSPID VALVE The tricuspid valve is normal in structure and function. Doppler and Color Flow revealed mild tricusp id regurgitation. The PA pressure was estimated at 59 mmHg. There is no tricuspid valve stenosis. PULMONIC VALVE The pulmonic valve is not well visualized. Doppler and Color Flow revealed mild pulmonic valvular reg urgitation. There is no pulmonic valvular stenosis. GREAT VESSELS The aortic root is normal in size. The ascending aorta is normal in size. The IVC is normal in size a nd collapses <50% with inspiration. PERICARDIAL EFFUSION There is a left pleural effusion. There is no evidence of significant pericardial effusion. Critical Notification Critical Value: No <Conclusion> The Left Ventricle is mildly dilated. Left ventricle systolic function is severely impaired. The Ejection Fraction is estimated at 15%. There is severe global hypokinesis of the left ventricle. There is akinesis in the apex wall. There are two areas of apical thrombus noted in the left ventricle. There is no significant aortic valvular stenosis. Doppler and Color Flow revealed trace aortic regurgitation. Doppler and Color-flow revealed moderate mitral regurgitation. Doppler and Color Flow revealed mild tricuspid regurgitation. The PA pressure was estimated at 59 mmHg. Signed by : Rui Maldonado MD Electronically Approved : 09/04/2019 15:59:47
[2019-09-04 17:30] VITALS: BP 112/83
--- NOTE | 2019-09-04 19:10 | NUR ---
Pt transferred from ICU to [facility] room 115 due to negative covid result. Pt remains tele status. All belongings with pt. Report received from Sharmaine ANDERSON.
[2019-09-04 19:37] VITALS: BP 113/80
[2019-09-04 22:05] VITALS: BP 114/80
[2019-09-05 05:34] VITALS: BP 125/88
[2019-09-05] MEDS: APIXABAN 5 MG TABLET. PO SCH (08:07)
[2019-09-05] MEDS: PANTOPRAZOLE 40 MG TABLET. PO SCH (08:18)
[2019-09-05] MEDS: AZITHROMYCIN 250 MG TABLET. PO SCH (08:18)
[2019-09-05] MEDS: ASPIRIN CHEWABLE 81 MG TABLET. PO SCH (08:18)
[2019-09-05] MEDS ORDERED: FUROSEMIDE 20 MG TABLET PO SCH (09:00)
[2019-09-05] MEDS ORDERED: PANT40TA6 PO (09:37)
[2019-09-05] MEDS ORDERED: FURO20TA3 PO (09:37)
[2019-09-05] MEDS ORDERED: APIX5TAB3 PO ×2 (09:37→09:54)
--- NOTE | 2019-09-05 10:20 | NUR ---
PT discharged to home. PT is able to verbalize understanding of discharge instructions. PT needs to take eliquis 10 mg 2 times per day for 2 more days then 5 mg 2 times per day for at least 6 months. PT given medicare forms from Alessandra Bennett and pt is to bring them back. Education given to patient about new medications and new diagnosis. PT has new dx of PE's, a low EF of 15 %, CHF, and reflux. 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 PT [place] via [place] with friend driving. Jaxon INTERNATIONAL ACCOUNTANT CMSRN [id number]
[2019-09-09] MEDS ORDERED: APIXABAN 5 MG TABLET. PO SCH (21:00)
--- NOTE | 2019-10-04 18:32 | DS ---
DATE OF DISCHARGE: 09/05/2019 HOSPITAL COURSE: A 59-year-old gentleman came in with increased shortness of breath as well as some chest discomfort. The patient had multiple medical problems. The patient had swelling in his legs, initially seen at [facility], left AMA there, apparently came into the [facility] ER late last night, was found to have severe pulmonary emboli as well as heart failure. The patient was admitted for further evaluation and treatment. The patient has had numerous medical problems as noted. The patient was diuresed and seen by Cardiology. The patient also was placed on anticoagulation of course. The patient made good progress during the rest of his hospitalization. He was placed on Eliquis. The patient had negative COVID report. Will continue with the Eliquis 10 mg b.i.d. for 7 days and then 5 b.i.d. Follow up with Cardiology and make further evaluation. IMPRESSION: Pulmonary emboli, acute on chronic congestive heart failure, hyperglycemia, type 2 diabetes. IGNACIO FLANAGAN MD DR: ANTONIA/linnette JOB#: [id number] / [id number]
== END 2019-09-05 10:30 | disposition home or self-care (01) | DRG 175 ==
LOC: ER 11:18 → ICU 15:37 → 1 SOUTH 09-04 18:52
PROVIDERS: ADMIT Family Medicine; ATTEND Family Medicine
DX: I26.94 Multiple subsegmental thrombotic pulmonary emboli without acute cor pulmonale (principal); J18.9 Pneumonia, unspecified organism; E44.0 Moderate protein-calorie malnutrition; I24.8 Other forms of acute ischemic heart disease; I50.20 Unspecified systolic (congestive) heart failure; E11.65 Type 2 diabetes mellitus with hyperglycemia; F12.90 Cannabis use, unspecified, uncomplicated; F15.90 Other stimulant use, unspecified, uncomplicated; K21.9 Gastro-esophageal reflux disease without esophagitis; K80.20 Calculus of gallbladder without cholecystitis without obstruction; K82.8 Other specified diseases of gallbladder; Z82.49 Family history of ischemic heart disease and other diseases of the circulatory system; Z83.3 Family history of diabetes mellitus; Z87.891 Personal history of nicotine dependence; Z20.828 Contact with and (suspected) exposure to other viral communicable diseases
CPT/HCPCS: 36415; 71045; 71260; 80048; 80053; 80061; 80307; 81001; 82947; 83036; 83735; 83880; 84443; 84484; 85025; 87040; 87635; 93005; 93306; 96372; J0456; J1650; J1815; Q9967; 99291-25